=== PATIENT | male | born 1940 | race Caucasian/White ===

== ENCOUNTER 2019-02-28 10:42 | Day surgery (SDC) | payer MEDICARE, OTHER, SELFPAY ==
[2019-02-28] VITALS (7 sets, daily range): BP systolic 116–176; BP diastolic 62–83; PULSE 49–60; RESP 10–24; TEMP 36.3–36.8; O2SAT 94–99; BMI 21.9
[2019-02-28] MEDS: SODIUM CHLORIDE 0.9% 1,000 ML 42 ML IV (12:56)
--- NOTE | 2019-02-28 13:29 | PM.HP.1 ---
History of Present Illness Date Patient Seen: 02/28/19 Time Patient Seen: 13:29 Chief complaint: [id number] Colonoscopy Narrative: History of colon polyps. Last colonoscopy 2012- Patient History Medical History (Updated 02/28/19 @ 13:30 by Jelena Benoit MD) History of colon polyps (Acute) Retained lens material following cataract surgery of both eyes (Acute) Thrombocytopenia (Acute) Tic (Acute ~03/2017) Surgical History (Updated 02/28/19 @ 13:10 by Nancy Capps RN) History of colonoscopy (Acute) History of inguinal hernia repair (Acute) Social History household members: spouse Family & Social History Social History: household members spouse Meds Allergies Allergy/AdvReac Type Severity Reaction Status Date / Time No Known Drug Allergies Allergy Verified 02/28/19 12:57 Exam Vital Signs (past 8 hours): - 02/28/19 13:10 Temperature 97.5 F L Pulse Rate 53 L Respiratory Rate 14 Blood Pressure 176/83 H Pulse Oximetry 99 Oxygen Delivery Method Room Air Narrative Exam Narrative: Oropharynx free of lesions Chest clear to auscultation and percussion Cardiac exam reveals no S3 or murmur Assessment & Plan Assessment & Plan narrative: History of colon polyps need for follow-up colonoscopy Colonoscopy has been explained. Risks, benefits, alternatives have been explained. Of note with his worsening thrombocytopenia despite the fact his hematology has cleared him for colonoscopy I told him we still would not be able to take any polyps of significance off. Small ones should be fine. He will be monitored closely. And hopefully this will be his last colonoscopy.
--- NOTE | 2019-02-28 13:31 | PM.OP.ENDO ---
Operative Date/Time/Diagnoses Date of procedure: 02/28/19 Time of procedure: 13:31 Pre-op diagnosis: See indication and findings Procedure & Clinicians Study performed: Colonoscopy Same procedure as scheduled: Yes Indications: History of colon polyps Surgeon: Jelena Benoit Procedure Notes Procedure in detail: After informed consent was obtained the patient was placed in left lateral decubitus position. The video colonoscope was introduced the rectum and slowly advanced to the cecum. On slow withdrawal mucosa was carefully examined. The scope was removed. The patient tolerated the procedure well. Blood loss none Complications none Medications Total sedation time 14 minutes Versed 2 mg fentanyl 100 mg Findings 1. Extensive sigmoid diverticulosis with very tortuous sigmoid difficult to negotiate 2. Otherwise negative colonoscopy to cecum This should be Mr. Singh/sudha.
[2019-02-28] MEDS: fentaNYL 250 MCG/5 ML INJ IV (14:12)
[2019-02-28] MEDS: MIDAZOLAM 5 MG/5 ML VIAL IV (14:13)
== END 2019-02-28 15:08 ==
PROVIDERS: PCP Internal Medicine; Visit Provider Internal Medicine Gastroenterology
PROC: 0DJD8ZZ Inspection of Lower Intestinal Tract, Via Natural or Artificial Opening Endoscopic (ICD-10-PCS; CPT 45378; principal; 2019-02-28 14:00)
DX: Z86.010 Personal history of colon polyps (principal); K57.30 Diverticulosis of large intestine without perforation or abscess without bleeding
CPT/HCPCS: G0105; J2250; J3010

== ENCOUNTER 2024-09-12 11:19 | Outpatient (CLI) | payer MEDICARE, OTHER, SELFPAY ==
[2024-09-12] VITALS (18 sets, daily range): BP systolic 124–181; BP diastolic 51–97; PULSE 51–93; RESP 12–22; TEMP 36.5; O2SAT 93–99
--- NOTE | 2024-09-12 | PATH_ITS ---
[facility] Accession Number: [id number] No. of containers..02 Tissue 04 Unknown Storage/container code(s) . 01 Material submitted: . PART A: bone marrow - RIGHT PELVIC CREST PART B: bone marrow - RIGHT PELVIC CREST . 01 Clinical history: . THROMBOCYTOPENIA . 01 Diagnosis: BONE MARROW BIOPSY, ASPIRATE CLOT, ASPIRATE SMEAR, TOUCH PREP, RIGHT PELVIC CREST: -Limited sample with hypercellular bone marrow for age (40-50%), with mildly reduced megakaryocytes, negative for increased blasts, see comment and microscopic description. -Focal mild reticulin fibrosis (MF1 of 3). -Chromosome analysis and MDS FISH panel pending. -- COMMENT: Concurrent flow cytometry analysis demonstrated no increased or definite aberrant blasts, and no monotypic B-cell or aberrant T-cell populations (see report for details: [id number]). - Adequate assessment of morphology is precluded due to lack of viable cells on aspirate smear slides. If clinically indicated, repeat sampling may be considered for more adequate evaluation. Chromosome analysis and MDS FISH panel results will be reported in an addendum. Follow up and clinical correlation is recommended. [facility] 09/18/2024 1729 Local . 01 Electronically signed: . Dev Keith MD, Pathologist NPI- [id number] . 01 Gross description: . A. Received in formalin with two patient identifiers and no site on jar, are fragments of presumed bone admixed with hemorrhagic material aggregating to 2.2 x 1.5 x 0.3 cm. Submitted entirely in A1 following decalcification in Immunocal. B. Received in formalin with two patient identifiers and no site on jar, is clot material, 3.0 x 2.7 x 0.3 cm. Filtered and submitted entirely in B1-B2. ([id number]) /MRV 09/18/2024 1730 Local . 01 Microscopic: . CLINICAL HISTORY: 83-year-old male with chronic thrombocytopenia. - CBC RESULTS (09/12/2024): WBC: 5.1 K/uL HGB: 15.3 g/dL HCT: 45.7% MCV: 90.3 fL PLT: 62 K/uL. (L). - PERIPHERAL BLOOD SMEAR: Not submitted. - In order to characterize this process more fully, immunohistochemical stains were indicated and performed on block A (core biopsy) with adequate controls, see below for findings and interpretation. - CORE BIOPSY: Fragmented core with adequate marrow space for evaluation. Reticulin stain (core biopsy): Focal mild reticulin fibrosis (MF1 of 3). Cellularity: 40-50% cellular bone marrow core. Erythroid cells: Normal maturation, and distribution as highlighted by CD71 and E-Cadherin immunostains. Myeloid cells: Normal number and distribution as highlighted by CD15 immunostain; normal M:E ratio of 2.5-3:1. CD117 highlights 1-2% scattered mast cells. Megakaryocytes: Mildly decreased with normal distribution as highlighted by FactorVIII immunostain. Blasts: 1-2% scattered blasts, focally up to 4%, as highlighted by CD34 immunostain. Lymphocytes: Negative for discrete lymphoid aggregates. CD3 highlights 3-4% scattered T-cells. CD20 highlights 2-3% scattered B-cells. Plasma cells: CD138 highlights 2% scattered plasma cells, polyclonal by kappa and lambda immunostains; kappa:lambda ratio is approximately 1.5:1. Granulomata: Not identified. Other abnormal cellular infiltrates: Not identified. - ASPIRATE CLOT: Negative for significant marrow particles. - BONE MARROW ASPIRATE SMEAR/TOUCH PREP MANUAL DIFFERENTIAL (%): Slides are extremely hypocellular, hemodilute, and aspicular, overall suboptimal for evaluation. - As part of ongoing rn clinical quality, select slides were reviewed by Dr. Darius Powers who agrees with the interpretation. Technical Note: The immunohistochemical stains reported were performed at [facility] ([address], [facility] [address]). This test was developed, and the performance characteristics were validated by [employer]. It has not been cleared or approved by the Food and Drug Administration. . 01 Pathologist provided ICD-10: D69.6 . 01 CPT . 660724, 655154, 209744, 278402, 282491, 634329, L12205, [id number] Performed at: [address] [id number] MD Eddie Resendez MD Phone: [phone]
--- NOTE | 2024-09-12 11:20 | DI.CT.S_ITS ---
PROCEDURE: CT BIOPSY BONE DEEP Sedation analgesia for 15 minutes. INDICATIONS: THROMBOCYTOPENIA TECHNIQUE: The indications, alternatives, benefits, risks, and possible complications of the procedure were communicated to the patient. Informed written consent from the patient was obtained and placed in the chart. Continuous EKG and hemodynamic monitoring was started by trained personnel. The patient was brought to the CT suite and muck miner blasting spiral CT imaging was performed with localization grid. The appropriate site for percutaneous access to the biopsy target was marked, was prepped and draped sterilely, and was infused with local anaesthesia. Under CT guidance, a core biopsy trocar and needle set was advanced to the biopsy target, and specimen(s) were obtained. The trocar and needle were then removed, and the patient was sent for post-procedure monitoring. COMPARISON: None. FINDINGS: Biopsy site: Left posterior iliac bone. Needle: 11 gauge biopsy needle with introducer trocar. Number of passes: 1 Medications: 1% lidocaine for local anaesthesia. IV Fentanyl and Versed for conscious sedation for 15 minutes (see nursing record). Complications: None. IMPRESSION: CT-guided biopsy of left posterior iliac bone. Dictated by: Eddie Cross M.D. on 09/12/2024 at 17:03 Approved by: Eddie Cross M.D. on 09/12/2024 at 17:03
[2024-09-12 13:30] LABS: Hematocrit 45.7 % (41-53); Hemoglobin 15.3 g/dL (13.5-17.5); Mean Corpuscular HGB Conc 33.6 % (30-36); Mean Corpuscular Hemoglobin 30.4 PG (26-34); Mean Corpuscular Volume 90.3 fL (80-100); Red Blood Cell Count 5.05 X10^6/uL (4.5-5.9); Red Cell Distribution Width 13.9 % (11.6-14.8); White Blood Cell Count 5.1 X10^3/uL (4.5-11.0)
[2024-09-12 14:01] LABS: Platelet Count 62 X10^3/uL (150-400)
[2024-09-12] MEDS: MIDAZOLAM 2 MG/2 ML VIAL 1 MG IV (14:30)
[2024-09-12 16:18] LABS: INR 1.1 (0.9-1.3); Prothrombin Time 11.9 SECONDS (9.4-12.5)
[2024-09-12] MEDS: fentaNYL 100 MCG/2 ML INJ 25 MCG IV (16:38)
[2024-09-12] MEDS: LIDOCAINE 2% INJ MDV 20ML 20 ML INJ (16:39)
== END 2024-09-12 16:10 | disposition home or self-care (01) ==
PROVIDERS: Radiology Neuroradiology; PCP Internal Medicine; Referring Provider Internal Medicine Medical Oncology; Visit Provider Internal Medicine Medical Oncology
DX: D75.839 Thrombocytosis, unspecified (principal); D69.6 Thrombocytopenia, unspecified
CPT/HCPCS: 20225; 77012; 85027; 85610; 99152; J2250; J3010